=== PATIENT | male | born 1990 | race Caucasian/White ===

== ENCOUNTER 2023-10-08 15:58 | Emergency (ER) | payer SELFPAY ==
[~2023-10-08] VITALS: Ht 162.6 cm; Wt 68.0 kg
[2023-10-08 16:46] VITALS: O2SAT 99
[2023-10-08] MEDS ORDERED: METH-653 MT (17:52)
[2023-10-08] MEDS ORDERED: ACET-2708 MT (17:52)
[2023-10-08 18:56] VITALS: BP 149/92; PULSE 78; RESP 18; TEMP 98.4
== END 2023-10-08 18:56 | disposition home or self-care (01) ==
LOC: ER 15:58
DX: S00.81XA Abrasion of other part of head, initial encounter (principal); R51.9 Headache, unspecified; F19.90 Other psychoactive substance use, unspecified, uncomplicated; Y08.89XA Assault by other specified means, initial encounter; Y93.89 Activity, other specified; Y92.89 Other specified places as the place of occurrence of the external cause; Y99.8 Other external cause status
CPT/HCPCS: 99283